=== PATIENT | female | born 1960 | race Caucasian/White ===

== ENCOUNTER 2016-08-01 13:54 | Emergency (ER) | payer OTHER ==
[~2016-08-01] VITALS: Wt 75.0 kg
[2016-08-01] MEDS ORDERED: KETOROLAC 15 MG INJ IV STA (14:49)
[2016-08-01] MEDS ORDERED: BELLADONNA/PHENOBARBITAL TAB PO STA (14:49)
[2016-08-01] MEDS ORDERED: ONDANSETRON 4 MG INJ IV STA (14:49)
[2016-08-01] MEDS ORDERED: SOD CHLORIDE 0.9% 1,000 ML IV STA (14:49)
[2016-08-01] MEDS ORDERED: FAMOTIDINE 20 MG TAB PO STA (14:49)
[2016-08-01] MEDS ORDERED: LIDOCAINE/MYLANTA 40 ML BTL PO STA (14:49)
[2016-08-01 14:56] LABS: ADD UMIC YES; URINE BILIRUBIN (Dip) NEGATIVE (NEGATIVE); URINE BLOOD (Dip) TRACE (NEGATIVE); URINE GLUCOSE (Dip) NEGATIVE (NEGATIVE); URINE KETONES (Dip) NEGATIVE (NEGATIVE); URINE LEUKOCYTE ESTERASE (Dip) NEGATIVE (NEGATIVE); URINE NITRITE (Dip) NEGATIVE (NEGATIVE); URINE TOTAL PROTEIN (Dip) 1+ (NEGATIVE); URINE UROBILINOGEN (Dip) 0.2 E.U./dL (0.1-1.0)
[2016-08-01 15:14] LABS: ADD SCAN DIFF NO
[2016-08-01 15:19] LABS: BASOPHILS % 0.3 % (0.0-2.0); HEMATOCRIT 43.5 % (37.0-47.0); HEMOGLOBIN 14.8 g/dl (12.0-16.0); LYMPHOCYTES # 0.8 10^3/ul (0.8-2.9); LYMPHOCYTES % 10.7 % (15.0-51.0); MEAN CORPUSCULAR HEMOGLOBIN 30.6 pg (29.0-33.0); MEAN CORPUSCULAR VOLUME 89.9 fl (82.0-101.0); MEAN PLATELET VOLUME 10.3 fl (7.4-10.4); MONOCYTE # 0.4 10^3/ul (0.3-0.9); NEUTROPHILS % 82.6 % (39.0-77.0); PLATELET COUNT 216 10^3/UL (140-415); RED BLOOD COUNT 4.84 10^6/ul (4.20-5.40); RED CELL DISTRIBUTION WIDTH 12.1 % (11.5-14.5); WHITE BLOOD COUNT 7.3 10^3/ul (4.8-10.8)
[2016-08-01 15:25] LABS: URINE COLOR YELLOW (YELLOW)
[2016-08-01 15:30] LABS: BACTERIA,URINE MODERATE; SQUAMOUS EPITHELIAL CELL,UR MODERATE; URINE RBCS 0-2 /HPF (0)
[2016-08-01 15:31] LABS: ALBUMIN 4.8 g/dl (3.3-4.9); CHLORIDE 101 mmol/L (97-110); POTASSIUM 3.8 mmol/L (3.5-5.1); SODIUM 142 mmol/L (135-144)
[2016-08-01 15:33] LABS: BILIRUBIN,INDIRECT 0.3 mg/dl (0-1.1); BILIRUBIN,TOTAL 0.3 mg/dl (0.2-1.3); CREATININE 0.87 mg/dl (0.44-1.00)
[2016-08-01 15:34] LABS: ALANINE AMINOTRANSFERASE 50 IU/L (13-69); ALKALINE PHOSPHATASE 116 IU/L (42-121); ASPARTATE AMINO TRANSFERASE 52 IU/L (15-46); BLOOD UREA NITROGEN 23 mg/dl (7-20); CARBON DIOXIDE 25 mmol/L (21-31); GLUCOSE 136 mg/dl (70-220); TOTAL PROTEIN 9.5 g/dl (6.1-8.1)
[2016-08-01 15:35] LABS: ALBUMIN/GLOBULIN RATIO 1.02; ANION GAP 20 (8-16)
[2016-08-01 15:53] LABS: TROPONIN-I < 0.012 ng/ml (0.00-0.12)
--- NOTE | 2016-08-01 15:58 | RADRPT ---
PROCEDURE: CT Abdomen and Pelvis without contrast. CLINICAL INDICATION: Abdominal and pelvic pain. TECHNIQUE: CT scan of the abdomen and pelvis without contrast was performed. Coronal and sagittal reformatted images were obtained from the axial source images. Images were reviewed on a high-resolu Levels [employer] PACS workstation. Total exam DLP is 741.91 mGy-cm. CTDIvol is 12.89 mGy. One or more of the f ollowing dose reduction techniques were used: Automated exposure control, adjustment of the mA and/o r kV according to patient size, use of iterative reconstruction technique. COMPARISON: None. FINDINGS: The lung bases are normal. There is no pleural effusion. The liver is enlarged and diffusely decreased in attenuation. There is no focal hepatic lesion. The gallbladder is surgically absent with clips noted in the gallbladder bed. The bile ducts are no rmal. The spleen is normal in size. There is no focal splenic lesion. Both adrenals are normal with no enlargement or mass. The pancreas is unremarkable with no mass or evidence of pancreatitis. There is no renal mass or hydronephrosis. There is no renal calculus or ureteral calculus. The abdominal aorta is not dilated. There is no retroperitoneal lymphadenopathy or mass. There is no pelvic lymphadenopathy or mass. The bladder and distal ureters are normal. The periappendiceal region is unremarkable with no evidence of appendicitis. There is diverticulosis of the colon without evidence of diverticulitis. The bowel and mesentery ar e otherwise normal. There is no free fluid or free gas. The osseous structures are unremarkable with no fracture or lytic lesion. IMPRESSION: 1. Hepatomegaly. 2. Fatty metamorphosis of the liver. 3. Status post cholecystectomy. 4. Diverticulosis of the colon without evidence of diverticulitis. 5. Otherwise normal noncontrast CT scan of the abdomen and pelvis. RPTAT: QQ .Missael Mclean MD, MD Date Time Electronically viewed and signed by .Missael Mclean MD, on 08/01/2016 15:58 .R/
[2016-08-01] MEDS ORDERED: FAMO40TA52 PO (16:27)
[2016-08-01] MEDS ORDERED: ONDA-43 PO (16:27)
[2016-08-01] MEDS ORDERED: NAPR-688 PO (16:27)
[2016-08-01] MEDS ORDERED: MAG355OR14 PO (16:27)
[2016-08-01 16:48] VITALS: BP 137/74; PULSE 81; RESP 16
--- NOTE | 2016-08-31 14:26 | ERD ---
ER Documentation Chief Complaint Date/Time DATE: 08/01/2016 TIME: 14:20 Chief Complaint AP. DIARRHEA, VOMITING HPI 56-year-old woman complains of a few episodes of clear nonbloody nonbilious emesis and diarrhea 2-3 days with abdominal cramping. Pain is been diffuse, nonradiating and nonexertional. She has had no weight loss, no melena or blood per rectum, no fevers or chills, no chest pain or shortness of breath, no headache or blurry vision. Patient denies dysuria. ROS All systems reviewed and are negative except as per history of present illness. Medications Home Meds Active Scripts Naproxen* (Naproxen*) 500 Mg Tablet, 500 MG PO BID Y for PAIN, #30 TAB Prov:EMMA TURNER MD 08/01/16 Ondansetron Hcl* (Zofran*) 4 Mg Tab, 4 MG PO TID Y for NAUSEA AND OR VOMITING, # 12 TAB Prov:EMMA TURNER MD 08/01/16 Famotidine* (Famotidine*) 40 Mg Tablet, 40 MG PO HS, #30 TAB Prov:EMMA TURNER MD 08/01/16 Mag Hydrox/Al Hydrox/Simeth (Maalox Advanced Suspension) 355 Ml Oral.susp, 2 TSP PO TID for PAIN AND/OR INFLAMMATION, #24 OZ Prov:EMMA TURNER MD 08/01/16 Allergies Allergies: Coded Allergies: No Known Allergy (Unverified , 08/01/16) PMhx/Soc None Medical and Surgical Hx: pt denies Medical Hx History of Surgery: Yes (gallbladder) Anesthesia Reaction: No Hx Neurological Disorder: No Hx Respiratory Disorders: No Hx Cardiac Disorders: No Hx Psychiatric Problems: No Hx Miscellaneous Medical Probl: No Hx Alcohol Use: No Hx Substance Use: No Hx Tobacco Use: No Smoking Status: Never smoker FmHx Family History: No diabetes Physical Exam Vitals Per nursing vital signs which I reviewed Physical Exam GENERAL: Well-developed, well-nourished, well-hydrated, in no apparent distress , looks nontoxic in appearance HEENT: Moist mucous membranes, pink conjunctiva, no cervical spine tenderness or step-off deformities, no goiter, no jaundice or icterus, extraocular movements intact without pain. No submandibular induration, and no pharyngeal erythema NEURO: Alert and oriented 3, cranial nerves II through XII intact bilaterally, pupils equal round reactive to light, no focal deficits or facial asymmetry, sensation intact distally Strength 5/5 in upper and lower extremities bilaterally CARDIAC: Regular rate and rhythm, no murmurs rubs or gallops LUNGS: Clear bilaterally no wheezing crackles or stridor ABDOMEN: Soft nontender, no guarding, no rigidity, no rebound, no psoas sign no obturator sign. Normoactive bowel sounds SKIN: Warm and dry to touch, no abrasions, contusions, or hematomas, no lacerations, no ecchymosis, no target lesions, and without ulcers EXTREMITIES: No clubbing cyanosis or edema, calves are bilaterally symmetrical, no Homans sign, no popliteal cord sign. Distal pulses equal and bilateral PSYCH: Normal affect without agitation or irritability Results 24 hrs Laboratory Tests Test 08/01/16 14:45 08/01/16 15:04 Urine Color YELLOW Urine Clarity SLIGHTLY CLOUDY Urine pH 6.0 Urine Specific [place] >=1.030 Urine Ketones NEGATIVE Urine Nitrite NEGATIVE Urine Bilirubin NEGATIVE Urine Urobilinogen 0.2 E.U./dL Urine Leukocyte Esterase NEGATIVE Urine Microscopic RBC 0-2/HPF Urine Microscopic WBC 2-5/HPF Urine Squamous Epithelial Cells MODERATE Urine Bacteria MODERATE Urine Hemoglobin TRACE Urine Glucose NEGATIVE% Urine Total Protein 1+ White Blood Count 7.310^3/ul Red Blood Count 4.8410^6/ul Hemoglobin 14.8g/dl Hematocrit 43.5% Mean Corpuscular Volume 89.9fl Mean Corpuscular Hemoglobin 30.6pg Mean Corpuscular Hemoglobin Concent 34.0g/dl Red Cell Distribution Width 12.1% Platelet Count 02319^3/UL Mean Platelet Volume 10.3fl Neutrophils % 82.6% Lymphocytes % 10.7% Monocytes % 6.0% Eosinophils % 0.0% Basophils % 0.3% Nucleated Red Blood Cells % 0.0/100WBC Neutrophils # 6.010^3/ul Lymphocytes # 0.810^3/ul Monocytes # 0.410^3/ul Eosinophils # 0.010^3/ul Basophils # 0.010^3/ul Nucleated Red Blood Cells # 0.010^3/ul Sodium Level 142mmol/L Potassium Level 3.8mmol/L Chloride Level 101mmol/L Carbon Dioxide Level 25mmol/L Anion Gap 20 Blood Urea Nitrogen 23mg/dl Creatinine 0.87mg/dl Glucose Level 136mg/dl Calcium Level 9.0mg/dl Total Bilirubin 0.3mg/dl Direct Bilirubin 0.00mg/dl Indirect Bilirubin 0.3mg/dl Aspartate Amino Transf (AST/SGOT) 52IU/L Alanine Aminotransferase (ALT/SGPT) 50IU/L Alkaline Phosphatase 116IU/L Troponin I < 0.012ng/ml Total Protein 9.5g/dl Albumin 4.8g/dl Globulin 4.70g/dl Albumin/Globulin Ratio 1.02 Lipase 53U/L Current Medications Medications (Trade) Dose Ordered Sig/Kiya Route PRN Reason Start Time Stop Time Status Last Admin Dose Admin Sodium Chloride (NS) 1,000 ml @ 1,000 mls/hr Q1H STAT IV 08/01/16 14:49 08/01/16 15:48 DC 08/01/16 15:17 Ondansetron HCl (Zofran Inj) 4 mg ONCE STAT IV 08/01/16 14:49 08/01/16 14:59 DC 08/01/16 15:15 Famotidine (Pepcid) 40 mg ONCE STAT PO 08/01/16 14:49 08/01/16 14:59 DC 08/01/16 15:16 Miscellaneous Medication (Gi Cocktail (2)) 40 ml ONCE STAT PO 08/01/16 14:49 08/01/16 14:59 DC 08/01/16 15:16 Belladonna/ Phenobarbital () 2 tab ONCE STAT PO 08/01/16 14:49 08/01/16 14:59 DC 08/01/16 15:16 Ketorolac Tromethamine (Toradol) 15 mg ONCE STAT IV 08/01/16 14:49 08/01/16 14:59 DC 08/01/16 15:15 Procedures/MDM IV line was established patient was placed on cardiac catheterization technologist rhythm strip revealed a sinus rhythm at about 70 bpm with upright P and T waves. Patient was afebrile. I administered 1 L normal saline intravenously, Toradol 15 mg IV, Zofran 4 mg IV , famotidine 40 mg p.o., and a GI cocktail 30 cc p.o. with good effect. CT scan of the abdomen and pelvis was performed, no acute inflammatory infectious pathology was noted. Please refer to radiologist dictation for full report. CBC was normal, electrolytes revealed dehydration otherwise unremarkable, liver function tests were normal, troponin was negative. Urine analysis was negative for infection. Differential diagnoses considered, included but not limited to acute coronary syndrome, pulmonary embolism, aortic dissection, abdominal aortic aneurysm, sepsis, stroke, meningitis, encephalitis, pneumonia, appendicitis, cholecystitis , bowel obstruction, pyelonephritis, nephrolithiasis, cystitis, as well as metabolic, hematologic, and electrolyte abnormalities. As well as abscess, cellulitis, fractures, and dislocations. Patient feels much better at this time, and vital signs are normal, symptoms have improved. I did give strict instructions to return to the ED if symptoms continue or worsen, patient will otherwise follow-up with primary care physician. Patient understood instructions and agreed to plan. Departure Diagnosis: Primary Impression: Vomiting and diarrhea Additional Impression: Abdominal pain Abdominal location: generalized Qualified Code: R10.84 - Generalized abdominal pain Condition: Good Patient Instructions: Abdominal Pain, Self-Care for Vomiting and Diarrhea EMMA TURNER MD August 31, 2016 14:26
== END 2016-08-01 16:51 | disposition home or self-care (01) ==
LOC: E/R 13:54
DX: R11.2 Nausea with vomiting, unspecified (principal); R19.7 Diarrhea, unspecified; R10.84 Generalized abdominal pain
CPT/HCPCS: 74176; 80053; 81001; 83690; 84484; 85025; 93005; J1885; J2405; J7030; Z7610; 36415; 81003; 96374; 96375

== ENCOUNTER 2018-09-12 20:14 | Emergency (ER) | payer MEDICAID, OTHER ==
[~2018-09-12] VITALS: Ht 152.4 cm; Wt 79.2 kg
[~2018-09-12 20:14] MED LIST: FAMO40TA5 PO; MAG355OR14 PO; NAPR-688 PO; ONDA4TAB13 PO
[2018-09-12 20:17] VITALS: BP 169/93; PULSE 81; RESP 18; Ht 152.4 cm; Wt 79.2 kg
[2018-09-12] MEDS ORDERED: PRED20TA PO (20:44)
[2018-09-12] MEDS ORDERED: IBUP-1542 PO (20:44)
--- NOTE | 2018-09-12 20:46 | ERD ---
ER Documentation Chief Complaint Chief Complaint MOUTH SORES X'S 3 DAYS HPI 58-year-old female presents with a 2-day history of a sore in the left soft palate. She has mild URI symptoms. She denies fevers, vomiting, shortness of breath or chest pain. She denies diabetes, additional medical conditions.. ROS All systems reviewed and are negative except as per history of present illness. Medications Home Meds Active Scripts Prednisone* (Prednisone*) 20 Mg Tab, 40 MG PO DAILY for 4 Days, TAB Prov:MUMTAZ LYONS MD 09/12/18 Ibuprofen* (Motrin*) 600 Mg Tab, 600 MG PO Q6, #15 TAB Prov:MUMTAZ LYONS MD 09/12/18 Naproxen* (Naproxen*) 500 Mg Tablet, 500 MG PO BID PRN for PAIN, #30 TAB Prov:EMMA TURNER MD 08/01/16 Ondansetron Hcl* (Zofran*) 4 Mg Tab, 4 MG PO TID PRN for NAUSEA AND OR VOMITING, #12 TAB Prov:EMMA TURNER MD 08/01/16 Famotidine* (Famotidine*) 40 Mg Tablet, 40 MG PO HS, #30 TAB Prov:EMMA TURNER MD 08/01/16 Mag Hydrox/Al Hydrox/Simeth (Maalox Advanced Suspension) 355 Ml Oral.susp, 2 TSP PO TID for PAIN AND/OR INFLAMMATION, #24 OZ Prov:EMMA TURNER MD 08/01/16 Allergies Allergies: Coded Allergies: No Known Allergy (Unverified , 08/01/16) PMhx/Soc Medical and Surgical Hx: pt denies Medical Hx History of Surgery: Yes (gallbladder) Anesthesia Reaction: No Hx Neurological Disorder: No Hx Respiratory Disorders: No Hx Cardiac Disorders: No Hx Psychiatric Problems: No Hx Miscellaneous Medical Probl: No Hx Alcohol Use: No Hx Substance Use: No Hx Tobacco Use: No FmHx Family History: No diabetes, No coronary disease, No other Physical Exam Vitals Vital Signs Date Temp Pulse Resp B/P (MAP) Pulse Ox O2 O2 Flow FiO2 Time Delivery Rate 09/12/18 97.0 81 18 169/93 98 20:17 (118) Physical Exam Const: No acute distress Head: Atraumatic Eyes: Normal Conjunctiva ENT: Normal External Ears, Nose and Mouth. Aphthous ulcer in the left soft palate. Uvula midline and airway patent. Tender left anterior cervical lymph node. Neck: Full range of motion. No meningismus. Resp: Clear to auscultation bilaterally Cardio: Regular rate and rhythm, no murmurs Abd: Soft, non tender, non distended. Normal bowel sounds Skin: No petechiae or rashes Back: No midline or flank tenderness Ext: No cyanosis, or edema Neur: Awake and alert Psych: Normal Mood and Affect Procedures/MDM Patient presents with lymphadenitis patient has no evidence of airway obstruction, signs of abscess, sepsis, additional concerning signs symptoms. Will treat with a short course of prednisone for lymphadenitis, ibuprofen, instructions for fluids, with recommendations for primary care follow-up and return precautions. The patient was stable with no new complaints during the ER course. Clinically, there is no current evidence to suggest meningitis, sepsis, acute abdomen, pneumonia, stroke, acute coronary syndrome, pulmonary embolism, aortic dissection or any other emergent condition appearing to require further evaluation or hospitalization. Patient counseled regarding my diagnostic impression and care plan. Prior to discharge all questions answered. Pt agrees with treatment plan and understands strict return precautions. Pt is instructed to follow up with primary care provider within 24-48 hours. Precautionary instructions provided including instructions to return to the ER if not improving or for any worsening or changing symptoms or concerns. Disclaimer: Inadvertent spelling and grammatical errors are likely due to EHR/dictation software use and do not reflect on the overall quality of patient care. Also, please note that the electronic time recorded on this note does not necessarily reflect the actual time of the patient encounter. Departure Diagnosis: Primary Impression: Sore in mouth Condition: Stable Patient Instructions: Aphthous Ulcer Additional Instructions: Probablamente un virus que dura 2-7 mariano. cheque otro vez en el proximo breanna para mas simptomas- vomito, dolor, lee ann, problemas con respirando, o con martinez doctor primario. MUMTAZ LYONS MD September 12, 2018 20:46
== END 2018-09-13 13:21 | disposition home or self-care (01) ==
LOC: E/R 20:14
DX: K13.79 Other lesions of oral mucosa (principal)
CPT/HCPCS: 99283

== ENCOUNTER 2019-02-22 18:57 | Emergency (ER) | payer SELFPAY ==
[~2019-02-22] VITALS: Ht 152.4 cm; Wt 78.0 kg
[~2019-02-22 18:57] MED LIST changes: +IBUP-1542 PO; +POLY10DR19 LEFT EYE; +PRED20TA PO
[2019-02-22 19:01] VITALS: Ht 152.4 cm; Wt 78.0 kg
[2019-02-22 21:37] VITALS: BP 167/79; PULSE 87; RESP 20
== END 2019-02-22 21:41 | disposition home or self-care (01) ==
LOC: FTE 18:57
DX: H00.014 Hordeolum externum left upper eyelid (principal)
CPT/HCPCS: 99283